=== PATIENT | female | born 1980 | race Caucasian/White ===

== ENCOUNTER 2016-10-10 12:45 | Emergency (ER) | payer OTHER ==
[2016-10-10] MEDS ORDERED: CYCLOBENZAPRINE 10 MG TABLET PO STA (13:19)
[2016-10-10] MEDS ORDERED: IBUPROFEN 800 MG TABLET PO STA (13:19)
[2016-10-10] MEDS ORDERED: CYCLOBENZAPRINE 10 MG TABLET PO ONE (13:23)
[2016-10-10] MEDS ORDERED: IBUPROFEN 800 MG TABLET PO ONE (13:23)
== END 2016-10-10 13:33 | disposition home or self-care (01) ==
DX: S39.012A Strain of muscle, fascia and tendon of lower back, initial encounter (principal); V43.52XA Car driver injured in collision with other type car in traffic accident, initial encounter
CPT/HCPCS: 99283; A9270

== ENCOUNTER 2016-10-13 09:58 | Outpatient (CLI) | payer MEDICAID, OTHER | END 2016-10-13 09:59 | disposition home or self-care (01) | DX: Z13.9 Encounter for screening, unspecified (principal) ==

== ENCOUNTER 2016-11-18 10:31 | Outpatient (CLI) | payer OTHER ==
[2016-11-18 13:25] LABS: BASOPHILS # (AUTO) 0.1 10^3/uL (0.0-0.1); BASOPHILS % (AUTO) 0.7 %; EOSINOPHILS # (AUTO) 0.2 10^3/uL (0.0-0.7); EOSINOPHILS % (AUTO) 2.9 %; HCT - HEMATOCRIT 35.1 % (37.0-47.0); HGB - HEMOGLOBIN 11.8 g/dL (12.0-16.0); LYMPHOCYTES # (AUTO) 1.5 10^3/uL (1.5-3.5); LYMPHOCYTES % (AUTO) 22.1 %; MEAN CORPUSCULAR HEMOGLOBIN 26.8 pg (27.0-31.0); MEAN CORPUSCULAR HGB CONC 33.7 g/dL (32.0-36.0); MEAN CORPUSCULAR VOLUME 79.7 fL (81.0-99.0); MEAN PLATELET VOLUME 8.5 fL (7.9-10.8); MONOCYTES # (AUTO) 0.5 10^3/uL (0.0-1.0); MONOCYTES % (AUTO) 7.1 %; NEUTROPHILS # (AUTO) 4.6 10^3/uL (1.5-6.6); NEUTROPHILS % (AUTO) 67.2 %; RED CELL DISTRIBUTION WIDTH 13.7 % (12.0-15.0); UNCORRECTED WHITE BLOOD COUNT 6.8 x10^3/uL; WHITE BLOOD COUNT 6.8 x10^3/uL (4.8-10.8)
[2016-11-18 14:17] LABS: THYROID STIMULATING HORMONE 0.97 uIU/mL (0.34-5.60)
== END 2016-11-18 10:32 | disposition home or self-care (01) ==
LOC: LAB.N 10:31
PROVIDERS: ATTEND Physician Assistant
DX: L65.9 Nonscarring hair loss, unspecified (principal)
CPT/HCPCS: 36415; 84439; 84443; 84481; 85025